=== PATIENT | male | born 1985 | race Caucasian/White ===

== ENCOUNTER 2016-11-30 13:54 | Emergency (ER) | payer MEDICARE, OTHER ==
--- NOTE | ~2016-11-30 | CT52 ---
[facility] A Service of [facility] RADIOLOGY TEXT RESULTS PATIENT: MILTON ESCALANTE LOCATION: [facility] : [birth year] UNIT #: [id number] AGE: [address]: Sameer Hernandez MD SEX: M ORDER DR: [id number] [facility] [address] [place], [place] [address] [id number] E MR#: [id number] Acc #: [id number] NAME: MILTON ESCALANTE. : 1985 SEX: M STUDY DATE/TIME: 11/30/2016 14:13 UNIT: [facility] ROOM: STUDY DESCRIPTION: CT Cervical Spine Wo Cont Attending Physician: Sameer Hernandez M.D. Ordering Physician: Sameer Hernandez M.D. Primary Care Physician: Rosalina Feliciano M.D. MEDICAL IMAGING REPORT This report is preliminary unless electronic signature is present EXAM CT of the cervical spine, 11/30/2016. COMPARISON STUDY 04/26/2015 HISTORY Headache and neck pain for 2 weeks. Fell 2 weeks ago. 2 days later developed left-sided neck pain radiating to the left arm. TECHNIQUE Transaxial imaging of the cervical spine was performed with multiplanar reconstructions and compared to the most recent study of 04/26/2015. This CT exam was performed with one or more of the following radiation dose reduction techniques: automatic exposure control, adjustment of mA and/or kV according to patient size, and iterative reconstruction. FINDINGS Cervical alignment is normal. Disc space and vertebral body height is maintained. Facet joints appear unremarkable. Atlantoaxial relationships are intact. No paravertebral soft tissue swelling or fluid collections are identified. CONCLUSION Normal Dictated by... Dax Azar M.D. THIS IS AN ELECTRONICALLY VERIFIED REPORT [facility] A Service [facility] RADIOLOGY TEXT RESULTS PATIENT: MILTON ESCALANTE LOCATION: [facility] : 87 UNIT #: [id number] AGE: [address]: Sameer Hernandez MD SEX: M ORDER DR: Dax Azar M.D. at 11/30/2016 5:07 PM J LUIS/richie TD: 11/30/2016 16:33 JOB #: [id number] MEDICAL IMAGING REPORT COPY
--- NOTE | ~2016-11-30 | CT71 ---
[facility] A Service of [facility] RADIOLOGY TEXT RESULTS PATIENT: MILTON ESCALANTE LOCATION: [facility] : 87 UNIT #: [id number] AGE: [address]: Sameer Hernandez MD SEX: M ORDER DR: [id number] [facility] [address] [place], [place] [address] [id number] E MR#: [id number] Acc #: [id number] NAME: MILTON ESCALANTE. : 1985 SEX: M STUDY DATE/TIME: 11/30/2016 14:09 UNIT: [facility] ROOM: STUDY DESCRIPTION: CT Head Wo Contrast Attending Physician: Sameer Hernandez M.D. Ordering Physician: Sameer Hernandez M.D. Primary Care Physician: Rosalina Feliciano M.D. MEDICAL IMAGING REPORT This report is preliminary unless electronic signature is present EXAM Head CT no contrast, 11/30/[address], 05/18/2015 PROCEDURE Routine unenhanced head CT HISTORY Headache and neck pain for 2 weeks after a fall 2 weeks ago. TECHNIQUE This CT exam was performed with one or more of the following radiation dose reduction techniques: automatic exposure control, adjustment of mA and/or kV according to patient size, and iterative reconstruction. FINDINGS There is no fracture. There is some slight ethmoid mucosal thickening and left maxillary mucosal thickening partially seen here. The skull base and calvaria are otherwise normal. Brain parenchymal density is normal though the study is very mildly motion degraded. There is no hemorrhage or hydrocephalus or extraaxial fluid collection. The extracranial soft tissues are normal. IMPRESSION Slight motion degradation and mild ethmoid sinus and left maxillary sinus mucosal thickening, otherwise normal negative unenhanced head CT. Dictated by... Ayad Coker M.D. [facility] A Service [facility] RADIOLOGY TEXT RESULTS PATIENT: MLITON ESCALANTE LOCATION: [facility] : 87 UNIT #: [id number] AGE: [address]: Sameer Hernandez MD SEX: M ORDER DR: THIS IS AN ELECTRONICALLY VERIFIED REPORT Ayad Coker M.D. at 12/03/2016 7:06 PM TITO/germán TD: 11/30/2016 16:28 JOB #: [id number] MEDICAL IMAGING REPORT COPY
[~2016-11-30 13:54] MED LIST: ALL DAY ALLERGY10 M2 PO; ALLERGY MED; AMITRIPTYLINE H50 MG PO; AMITRIPTYLINE100 MG PO; BACLOFEN20 M1 PO; BACTRIM DS TABL1 TA1 PO; BENTYL20 MG PO; BP MED; CARAFATE1 G PO; CHOL MED; CLARITIN10 M2 PO; DEPLIN15 MG PO; DICLOFENAC SOD100 MG PO; FISH OIL 1,0001 EAC3 PO; GABAPENTIN400 M2 PO; GLUCOPHAGE500 MG PO; HCTZ PO; HYDROCHLOROTH12.5 M1 PO; HYDROCODON-ACE1 EAC5 PO; HYDROCODONE/APA1 T16 PO; IBUPROFEN PO; KEFLEX PO; LIPITOR20 MG PO; LISINOPRIL PO; LISINOPRIL10 MG PO; LOPRESSOR PO; MELATONIN3 M1 PO; MELATONIN3 MG PO; METFORMIN HCL1000 M1 PO; METFORMIN PO; NASAL SPRAY30 M3; NASONEX17 GM; NEURONTIN PO; NEXIUM PO; NORCO 7.5/325 T1 TAB PO; NOVOLIN 70/30 V10 ML SUBQ; NOVOLOG7030 SUBQ; OXYCODON HCL-1 UDTAB PO; PERCOCET10 PO; REGLAN10 MG PO; ROBAXIN 750750 M1 PO; ROBAXIN 750750 MG PO; SOMA PO; TRICOR PO; UNK MUSCLE RELAXER; UNK PAIN MED; VENLAFAXINE H37.5 MG PO; VICODIN PO; WAL-DRYL25 M1 PO; WAL-DRYL25 MG PO; XYZAL5 MG PO; ZANAFLEX PO; ZOCOR PO
== END 2016-11-30 14:40 | disposition home or self-care (01) ==
LOC: CED 13:54
DX: M54.12 Radiculopathy, cervical region (principal); I10 Essential (primary) hypertension; E11.9 Type 2 diabetes mellitus without complications; Z88.8 Allergy status to other drugs, medicaments and biological substances
CPT/HCPCS: 70450; 72125; 99284

== ENCOUNTER 2017-04-10 12:37 | Emergency (ER) | payer MEDICARE, OTHER | END 2017-04-10 13:05 | disposition home or self-care (01) | LOC: CED 12:37 → CFTX 12:37 | DX: N48.89 Other specified disorders of penis (principal); E11.9 Type 2 diabetes mellitus without complications; I10 Essential (primary) hypertension; E78.5 Hyperlipidemia, unspecified; G89.29 Other chronic pain; M54.9 Dorsalgia, unspecified; F17.210 Nicotine dependence, cigarettes, uncomplicated; Z88.6 Allergy status to analgesic agent; Z79.84 Long term (current) use of oral hypoglycemic drugs | CPT/HCPCS: 99282 ==